=== PATIENT | male | born 1970 | race Caucasian/White ===

== ENCOUNTER 2024-03-21 06:40 | Day surgery (SDC) | payer OTHER, SELFPAY ==
[2024-03-13 14:08] VITALS: BMI 26.0
[2024-03-21 13:28] VITALS: BMI 26.0
[2024-03-21 13:29] VITALS: BP 153/81
[2024-03-21] MEDS: TYLENOL 1000 MG PO (15:30)
[2024-03-21] MEDS: CELEBREX 200 MG PO (15:30)
[2024-03-21 16:30] VITALS: BP 130/75
[2024-03-21 16:45] VITALS: BP 136/87
[2024-03-21 16:53] VITALS: BP 135/92
[2024-03-21 17:15] VITALS: BP 156/99
[2024-03-21 17:30] VITALS: BP 139/94
== END 2024-03-21 17:30 | disposition home or self-care (01) ==
LOC: SDS 06:40
PROVIDERS: ATTENDING PHYSICIAN Specialist; FAMILY PHYSICIAN Student in an Organized Health Care Education/Training Program
DX: S83.241A Other tear of medial meniscus, current injury, right knee, initial encounter (principal); S83.271A Complex tear of lateral meniscus, current injury, right knee, initial encounter; X58.XXXA Exposure to other specified factors, initial encounter; M22.41 Chondromalacia patellae, right knee
CPT/HCPCS: 29880; 36415; 93005